=== PATIENT | male | born 1970 | race Caucasian/White ===

== ENCOUNTER 2016-11-17 17:15 | Inpatient (IN) | payer MEDICAID ==
[2016-11-17 17:15] VITALS: BMI 37.3
--- NOTE | 2016-11-17 18:10 | C.PDOC ---
History Of Present Illness <Antony Serna - Last Filed: 11/17/16 18:07> <Karey Arroyo - Last Filed: 11/17/16 20:13> 46 y/o M p/w suicidal ideation. States hearing voices telling him to kill himself. Thinking about jumping out window. Reports has attempted suicide in the past. Denies homicidal ideation or visual hallucinations. Denies any fever, chest pain, vomiting, or other somatic complaint. (Antony Serna) <Antony Serna - Last Filed: 11/17/16 18:07> <Sonja Arroyokayla - Last Filed: 11/17/16 20:13> Time Seen by Provider: 11/17/16 18:05 Chief Complaint (Nursing): Psychiatric Evaluation Past Medical History - Medical History PMH: Anxiety, Arthritis, Depression, HTN, Hypercholesterolemia Denies: Diabetes, Hepatitis, HIV, Chronic Kidney Disease, Seizures, Sexually Transmitted Disease Surgical History: Appendectomy Family History: States: Unknown Family Hx - Social History Hx Tobacco Use: Yes (light smoker) Hx Alcohol Use: No Hx Substance Use: No - Immunization History Hx Tetanus Toxoid Vaccination: No Hx Influenza Vaccination: No Hx Pneumococcal Vaccination: No <Antony Serna - Last Filed: 11/17/16 18:07> Review Of Systems Except As Marked, All Systems Reviewed And Found Negative. Constitutional: Negative for: Fever Cardiovascular: Negative for: Chest Pain <Antony Serna - Last Filed: 11/17/16 18:07> Physical Exam <Antony Serna - Last Filed: 11/17/16 18:07> <Karey Arroyo - Last Filed: 11/17/16 20:13> - Physical Exam Additional Physical Exam Comments: Constitutional: No acute distress. Head: Normocephalic. Atraumatic. Eyes: PERRL. ENT: Moist mucous membranes. Neck: Supple. Cardiovascular: Regular rate. Radial pulse 2+ bilaterally. Chest: No tenderness. Respiratory: Clear to auscultation bilaterally. GI: Soft. Nontender. Nondistended. Back: No CVA tenderness. Musculoskeletal: No tenderness or swelling of extremities. Skin: No rash. Neurologic: Alert, no focal deficit (Antony Serna) ED Course And Treatment - Laboratory Results Result Diagrams: 11/17/16 19:14 11/17/16 19:14 <JodyshellSonjakayla - Last Filed: 11/17/16 20:13> Medical Decision Making <Antony Serna - Last Filed: 11/17/16 18:07> <CruzSonjakayla - Last Filed: 11/17/16 20:13> Medical Decision Making: Will medically clear for psychiatric evaluation. Will sign out to ER night team at change of shift. (Antony Serna) Disposition <Antony Serna - Last Filed: 11/17/16 18:07> Discussed With Dr.: Rosalba Cortez (\) Comment: accepted the pt on her service and took over the care at 8:12 PM Doctor Will See Patient In The: Hospital Counseled Patient/Family Regarding: Studies Performed, Diagnosis - Disposition Disposition Time: 19:00 - POA Present On Arrival: None <CruzKarey - Last Filed: 11/17/16 20:13> - Disposition Disposition: HOSPITALIZED Condition: FAIR - Clinical Impression Clinical Impression: Single major depressive episode, severe, with psychosis Decision To Admit <Antony Serna - Last Filed: 11/17/16 18:07> - Pt Status Changed To: Hospital Disposition Of: Inpatient - Admit Certification Admit to Inpatient:: After my assessment, the patient will require hospitalization for at least two midnights. This is because of the severity of symptoms shown, intensity of services needed, and/or the medical risk in this patient being treated as an outpatient. - InPatient: Physician Admission Certification: I certify that this patient requires 2 or more midnights of care for the following reason:: After my assessment, the patient will require hospitalization for at least two midnights. This is because of the severity of symptoms shown, intensity of services needed, and/or the medical risk in this patient being treated as an outpatient. - . Bed Request Type: Psychiatry Admitting Physician: Rosalba Cortez <Karey Arroyo - Last Filed: 11/17/16 20:13> - . Patient Diagnosis: Single major depressive episode, severe, with psychosis
[2016-11-17 19:24] LABS: URINE BILIRUBIN NEGATIVE (NEGATIVE); URINE BLOOD NEGATIVE (NEGATIVE); URINE COLOR Straw (YELLOW); URINE GLUCOSE (UA) NORMAL (Normal); URINE KETONE NEGATIVE (NEGATIVE); URINE LEUKOCYTE ESTERASE NEG Leu/uL (Negative); URINE PROTEIN NEGATIVE (NEGATIVE); URINE UROBILINOGEN NORMAL mg/dL (0.2-1.0); WBC URINE < 1 /hpf (0-5)
[2016-11-17 19:25] LABS: CHLORIDE 100 mmol/L (98-107); SODIUM 137 mmol/L (132-148)
[2016-11-17 19:26] LABS: POTASSIUM 3.3 mmol/L (3.6-5.2)
[2016-11-17 19:28] LABS: ALB/GLOB RATIO 1.3 (1.0-2.1); ALKALINE PHOSPHATASE 43 U/L (38-126); ALT/SGPT 25 U/L (21-72); AST/SGOT 27 U/L (17-59); BILIRUBIN,TOTAL 0.5 mg/dL (0.2-1.3); BLOOD UREA NITROGEN 15 mg/dL (9-20); CARBON DIOXIDE 27 mmol/L (22-30); GFR AFRICAN-AMERICAN > 60; GLUCOSE,RANDOM 102 mg/dL (75-110); TOTAL PROTEIN 7.6 g/dL (6.3-8.3)
[2016-11-17 19:29] LABS: ALCOHOL SERUM < 10 mg/dl (0-10); CALCIUM 9.2 mg/dl (8.6-10.4)
[2016-11-17 19:43] LABS: BASO # 0.1 K/uL (0.0-0.2); BASO % 1.2 % (0.0-2.0); EOS # 0.2 K/uL (0.0-0.7); EOS % 2.3 % (0.0-4.0); LYMPH % 30.2 % (20.0-40.0); MEAN CELL VOLUME 84.7 fL (80.0-94.0); MEAN PLATELET VOLUME 9.6 fL (7.2-11.7); MONO # 0.7 K/uL (0.0-0.8); MONO % 11.1 % (0.0-10.0); NRBC % 0.1 % (0.0-2.0); RED CELL DISTRIBUTION WIDTH 14.1 % (11.5-14.5); WHITE BLOOD COUNT 6.7 K/uL (4.8-10.8)
[2016-11-17] MEDS ORDERED: Potassium Chloride 20 mEq ER Tab PO STA (20:29)
--- NOTE | 2016-11-18 14:20 | PCM.PSYCH ---
Initial Psychiatric Evaluation - Initial Psychiatric Evaluation Type of Admission: Voluntary Legal Status: Capacity Chief Complaint (in patient's own words): "I feel depressed" History of Present Illness and Precipitating Events: The patient is seen, chart reviewed and case discussed. He is known to the contract writer from 2 previous admissions. This is a 46-year-old male, Citizen Of [place], has 5 children, lives with a friend as he broke up with his girlfriend, unemployed but is appealing an SSI denial. The patient says that he lost his apartment in June because of unpaid rents and then later on broke up with his girlfriend who left with their 3-month-old baby. He got increasingly depressed over the months and recently thought about jumping off a window. He goes to [facility] outpatient program and claims to be compliant with medications. He denies all alcohol and drug use and he is not a smoker. He reports anhedonia, low self-esteem, some hopelessness, sleep/appetite/energy problems. He contracts for safety and agrees to follow his safety plan. He also responded well to reassurance and support. Past psych history: 2 admissions at [facility] with similar presentation and panic attacks. He had 2 suicide attempts in the past once he cut himself but the scars are superficial and the other one was when he tried to hang himself (vague history again) Family psych history: Mother had anxiety and depression. Medical history: Left eye blind, gout, rheumatoid arthritis, high cholesterol, hypertension Current Medications: Active Medications Generic Name Dose Route Start Last Admin Trade Name Freq PRN Reason Stop Dose Admin Allopurinol 300 mg 11/18/16 10:00 11/18/16 10:02 Zyloprim PO 300 mg DAILY BHAVIN Administration Aripiprazole 15 mg 11/18/16 10:00 11/18/16 10:01 Abilify PO 15 mg DAILY BHAVIN Administration Hydrochlorothiazide 25 mg 11/18/16 10:00 11/18/16 10:02 Hydrodiuril PO 25 mg DAILY BHAVIN Administration Lorazepam 2 mg 11/17/16 22:16 11/17/16 22:25 Ativan PO 2 mg DAILY PRN Administration Agitation Losartan Potassium 100 mg 11/18/16 10:00 11/18/16 10:01 Cozaar PO 100 mg DAILY BHAVIN Administration Mirtazapine 45 mg 11/17/16 22:00 11/17/16 22:25 Remeron PO 45 mg HS BHAVIN Administration Trazodone HCl 50 mg 11/17/16 21:59 11/17/16 22:29 Desyrel PO 50 mg HS PRN Administration Insomnia Past Psychiatric History - Past Psychiatric History Previous Treatment History: Inpatient Pertinent Medical Hx (Current Medical&Sleep Prob, Allergies): Allergies Allergy/AdvReac Type Severity Reaction Status Date / Time Iodine and Iodide Containing Allergy Verified 12/15/15 00:57 Produc ARIPiprazole [Abilify] 5 mg PO HS #30 tab 12/20/15 Mirtazapine [Remeron] 30 mg PO HS #30 tab 12/20/15 Allopurinol 11/17/16 Fenofibrate 11/17/16 Valsartan 11/17/16 Review of Systems - Psychiatric Psychiatric: Abnormal Sleep Pattern, Anhedonia, Anxiety, Behavioral Changes, Change in Appetite, Depression, Difficulty Concentrating, Irritability. absent : Hallucinations, Homicidal Ideation, Paranoia, Suicidal Ideation Mental Status Examination - Personal Presentation Personal Presentation: Looks stated age - Affect Affect: Constricted - Motor Activity Motor Activity: Calm - Reliability in Providing Information Reliability in Providing Information: Good - Speech Speech: Organized - Mood Mood: Depressed, Anxious - Formal Thought Process Formal Thought Process: No Impairment - Cognitive Functions Orientation: Person, Place, Situation, Time Sensorium: Alert Attention/Concentration: Easily distracted Abstract Thinking: [place] Estimate of Intelligence: Average Judgement: Intact, as evidence by: Insight regarding need for hospitalization Memory: Recent intact, as evidence by: Ability to recall events of the day, Remote intact, as evidenced by: Abilit to recall sig. life events - Risk Risk: Diminished functioning - Strength & Assets Inventory Strength & Assets Inventory: Cooperative - Limitations Limitations: Living alone, Other DSM 5 DX - DSM 5 DSM 5 Diagnosis: Major depressive d/o -recurrent, severe w/o psychosis Anxiety d/o - unspecified r/o PTSD - Recommended/Plan of Treatment Treatment Recommendations and Plan of Treatment: Depression and anxiety: -Lexapro -Increase Abilify to 20 -Decrease Remeron to 30 -Attend groups and activities -Supportive therapy and CBT -Psychoeducation 32 minutes Projected ELOS: 6 days Prognosis: good with treatment Discharge Plan and Discharge Criteria: No severe depressive sxs Refer to [facility] - Smoking Cessation Smoking Cessation Initiated: No Reason for not providing: Not smoking
[2016-11-18 14:26] LABS: CHLORIDE 104 mmol/L (98-107); POTASSIUM 3.6 mmol/L (3.6-5.2); SODIUM 139 mmol/L (132-148)
[2016-11-18 14:29] LABS: BLOOD UREA NITROGEN 14 mg/dL (9-20); CALCIUM 9.2 mg/dl (8.6-10.4); CARBON DIOXIDE 29 mmol/L (22-30); GFR AFRICAN-AMERICAN > 60; GLUCOSE,RANDOM 122 mg/dL (75-110)
--- NOTE | 2016-11-19 08:36 | PCM.PYCHPN ---
Psychiatric Progress Note - Psychiatric Progress Note Patient seen today, length of contact: 16 min Patient Chief Complaint: "I cant take lexapro" Problems Identified/Issues Discussed: The pt is seen alone and with team, chart reviewed, case discussed with staff. Support given, CBT used. No new symptoms reported, improving slowly and needs more time No SEs from medications but he chose to try Prozac instaed as he had SEs with lexapro in the apst risks discussed. After care discussed. He is not interested in work rehabs Medication Change: Yes (prozac) Medical Record Reviewed: Yes Mental Status Examination - Cognitive Function Orientation: Person, Place, Situation, Time Memory: Intact Attention: WNL Concentration: Poor Association: WNL Fund of Knowledge: WNL - Mood Mood: Depressed, Anxious - Affect Affect: Constricted - Speech Speech: Appropriate - Formal Thought Process Formal Thought Process: No Impairment - Suicidal Ideation Suicidal Ideation: No - Homicidal Ideation Homicidal Ideation: No Goal/Treatment Plan - Goal/Treatment Plan Need for Continued Stay: Discharge may exacerbated symptoms, Severe functional impairment Progress Toward Problem(s) and Goals/Treatment Plan: Depression and anxiety: -Lexapro switched to Prozac -Increase Abilify to 20 -Decrease Remeron to 30 -Attend groups and activities -Supportive therapy and CBT -Psychoeducation
--- NOTE | 2016-11-20 14:15 | PCM.PYCHPN ---
Psychiatric Progress Note - Psychiatric Progress Note Patient seen today, length of contact: 16 min Patient Chief Complaint: "Depressed" Problems Identified/Issues Discussed: The pt is seen, chart reviewed, case discussed with staff. The pt is compliant with medications and reports no side-effects. Symptoms are improving but needs more time to stabilize. Still depressed and cannot sleep: "I'm very anxious" After care discussed, he does not wantto change his clinic but yet the earlies they can see him is in November. Support and psychoeducation given. Medication Change: Yes (decrease remeron, add buspar and gabapentin) Medical Record Reviewed: Yes Mental Status Examination - Cognitive Function Orientation: Person, Place, Situation, Time Memory: Intact Attention: WNL Concentration: Poor Association: WNL Fund of Knowledge: WNL - Mood Mood: Depressed, Anxious - Affect Affect: Constricted - Speech Speech: Appropriate - Formal Thought Process Formal Thought Process: No Impairment - Suicidal Ideation Suicidal Ideation: No - Homicidal Ideation Homicidal Ideation: No Goal/Treatment Plan - Goal/Treatment Plan Need for Continued Stay: Discharge may exacerbated symptoms, Severe functional impairment Progress Toward Problem(s) and Goals/Treatment Plan: Depression and anxiety: -Lexapro switched to Prozac -Increased Abilify to 20 -Decreased Remeron to 15 - Add gabapentin and buspar for anxiety - Risks of meds discussed and he is OK -Attend groups and activities -Supportive therapy and CBT -Psychoeducation Estimated Date of D/C: 11/24/16
[2016-11-21 09:53] VITALS: O2SAT 97
--- NOTE | 2016-11-21 17:16 | PCM.PYCHPN ---
Psychiatric Progress Note - Psychiatric Progress Note Patient seen today, length of contact: 28 min Patient Chief Complaint: "I am very anxious" Problems Identified/Issues Discussed: The pt is seen, chart reviewed, case discussed with staff. The pt is compliant with medications and he had a side-effect this afternoon when he was all red, but not itchy, not sweaty, yet uncomfortable/anxious and tachy. His BP also increased. He is given one dose of Valium 5 mg, and 2 doses of Clonidine 0.1, and one dose of atarax. He is advised to hydrate a lot and rest. It could be a mild allergic reaction or mild serotonergic syndrome. Symptoms are improving but needs more time to stabilize especially now that meds are changed. Still depressed and cannot sleep: "I'm very anxious" Klonopin added After care discussed, he does not want to change his clinic still Support and psychoeducation given. He is advised to not take SSRIs again. Medication Change: Yes (increase remeron, d/c prozac, trazodone and buspar. Add seroquel) Medical Record Reviewed: Yes Mental Status Examination - Cognitive Function Orientation: Person, Place, Situation, Time Memory: Intact Attention: WNL Concentration: Poor Association: WNL Fund of Knowledge: WNL - Mood Mood: Depressed, Anxious - Affect Affect: Constricted - Speech Speech: Appropriate - Formal Thought Process Formal Thought Process: No Impairment - Suicidal Ideation Suicidal Ideation: No - Homicidal Ideation Homicidal Ideation: No Goal/Treatment Plan - Goal/Treatment Plan Need for Continued Stay: Discharge may exacerbated symptoms, Severe functional impairment Progress Toward Problem(s) and Goals/Treatment Plan: Depression and anxiety: -Prozac stopped, remeron increased. -Trazodone dc'ed, seroquel added for insomnia - Decrease Abilify to 10 mg too - Added Klonopin for anxiety, short term - gabapentin for anxiety, senior care - Risks of meds discussed and he is OK now, incl. serot. syndrome -Attend groups and activities -Supportive therapy and CBT -Psychoeducation - After care is ready Estimated Date of D/C: 11/26/16
[2016-11-23] MEDS: VALSARTAN HCTZ PO SCH (09:04)
--- NOTE | 2016-11-24 01:03 | PCM.PYCHPN ---
Psychiatric Progress Note - Psychiatric Progress Note Patient seen today, length of contact: 15 MIN Patient Chief Complaint: I STILL VERY ANXIOUS Problems Identified/Issues Discussed: SYMPTOM MANAGEMENT Medical Problems: NOTHING ACUTE Diagnostic Results: REVIEWED DSM 5 Symptoms Update: ANXIETY Medication Change: No Medical Record Reviewed: Yes Mental Status Examination - Cognitive Function Orientation: Person, Place, Situation, Time Memory: Intact Attention: WNL Concentration: Poor Association: WNL Fund of Knowledge: WNL - Mood Mood: Depressed, Anxious - Affect Affect: Constricted - Speech Speech: Appropriate - Formal Thought Process Formal Thought Process: No Impairment - Suicidal Ideation Suicidal Ideation: No - Homicidal Ideation Homicidal Ideation: No Goal/Treatment Plan - Goal/Treatment Plan Need for Continued Stay: Discharge may exacerbated symptoms, Severe functional impairment Progress Toward Problem(s) and Goals/Treatment Plan: MDD EMMIEOFAnton HERNÁNDEZ DORINDA HUMBLE SEROKAREN SUPPORTIVE PSYCHOTHERAPY Estimated Date of D/C: 11/26/16 - Smoking Cessation Smoking Cessation Initiated: No
--- NOTE | 2016-11-24 02:44 | PCM.PYCHPN ---
Psychiatric Progress Note - Psychiatric Progress Note Patient seen today, length of contact: 15 MIN Patient Chief Complaint: I NEED A BLOOD PRESSURE CUFF. MY BP GOES UP AND DOWN Problems Identified/Issues Discussed: ADHERENCE TO TREATMENT AND MEDS Medical Problems: NOTHING ACUTE Diagnostic Results: REVIWED Medication Change: No Medical Record Reviewed: Yes Mental Status Examination - Cognitive Function Orientation: Person, Place, Situation, Time Memory: Intact Attention: WNL Concentration: WNL Association: WNL Fund of Knowledge: WNL - Mood Mood: Depressed, Anxious - Affect Affect: Constricted - Speech Speech: Appropriate - Formal Thought Process Formal Thought Process: No Impairment - Suicidal Ideation Suicidal Ideation: No - Homicidal Ideation Homicidal Ideation: No Goal/Treatment Plan - Goal/Treatment Plan Need for Continued Stay: Discharge may exacerbated symptoms, Severe functional impairment Progress Toward Problem(s) and Goals/Treatment Plan: MDD KATEY HERNÁNDEZ CA CBT SUPPORTIVE PSYCHOTHERAPY DORINDA ZOILAIONCODIIN SERGABBIE SUPPORTIVE PSYCHOTHERAPY Estimated Date of D/C: 11/26/16 - Smoking Cessation Smoking Cessation Initiated: Yes
[2016-11-24] MEDS: VALSARTAN HCTZ PO SCH (09:34)
--- NOTE | 2016-11-24 14:14 | PCM.PYCHPN ---
Psychiatric Progress Note - Psychiatric Progress Note Patient seen today, length of contact: 16 min Patient Chief Complaint: "I am worried a lot about my BP" Problems Identified/Issues Discussed: The pt is seen, chart reviewed, case discussed with staff. Support given, CBT and RI used briefly No new symptoms reported, improving slowly and needs some more time No SEs from medications, risks discussed. After care discussed - will go back to his clinic BP is up a lot. Consult requested He is now on 3-4 BP meds and still running high Medication Change: Yes (add BP meds) Medical Record Reviewed: Yes Mental Status Examination - Cognitive Function Orientation: Person, Place, Situation, Time Memory: Intact Attention: WNL Concentration: WNL Association: WNL Fund of Knowledge: WNL - Mood Mood: Depressed, Anxious - Affect Affect: Constricted - Speech Speech: Appropriate - Formal Thought Process Formal Thought Process: No Impairment - Suicidal Ideation Suicidal Ideation: No - Homicidal Ideation Homicidal Ideation: No Goal/Treatment Plan - Goal/Treatment Plan Need for Continued Stay: Discharge may exacerbated symptoms, Severe functional impairment Progress Toward Problem(s) and Goals/Treatment Plan: Depression and anxiety: -Prozac stopped, remeron increased. -Trazodone dc'ed, seroquel added for insomnia - Decrease Abilify to 10 mg too - Added Klonopin for anxiety, short term - gabapentin for anxiety, care home - Risks of meds discussed and he is OK now, incl. serot. syndrome -Attend groups and activities -Supportive therapy and CBT -Psychoeducation - After care is ready Estimated Date of D/C: 11/25/16
[2016-11-24 18:31] LABS: THYROID STIMULATING HORMONE 1.65 mIU/L (0.46-4.68)
[2016-11-24 19:27] LABS: FREE T4 1.26 ng/dL (0.78-2.19)
--- NOTE | 2016-11-24 19:41 | CP.PCM.CON ---
<Yesenia WellsCarlota - Last Filed: 11/24/16 19:28> History of Present Illness - History of Present Illness History of Present Illness: PGY1 Medicine Consult- Dr. Barrera's Service HPI: Patient is a 46 y/o male with PMH of hypertension, hyperlipidemia, anxiety , and depression admitted to hospital for depression and anxiety. He is currently homeless for 5 months living with his friend. He has no job and is applying for disability. Patient has two previous psychiatric admissions at [facility]. Today patient feels like his ears are clogged, hands are cold, and slight blurry vision when he is feeling anxious. Patient denies headache, dizziness, shortness of breath, lightheadedness, chest pain, abdominal pain, nausea, vomiting, diarrhea, constipation, dysuria, leg pain, or leg swelling. PMD: Dr. Dickens PMHx: Left eye blind, gout, rheumatoid arthritis, high cholesterol, hypertension PSurg: appendix removed ~2014, cyst on right buttock removed ~2014 Social hx: stopped smoking 3 weeks ago, before smoked 5 cigarettes per day for 30 years EtOH: about 2x per month 7-8 beers Drugs: none Medications: please see chart for psych medications Norvasc 10 mg PO daily Allopurinol 300 mg PO daily HCTZ 12.5 mg PO daily Family Hx: mom of a stroke father had hypertension and DM Allergies: Iodine- has shortness of breath and palpitations Review of Systems - Constitutional Constitutional: absent: Fever, Headache - EENT Eyes: Blurred Vision. absent: Diplopia, Irritation, Pain Ears: absent: Dizziness Nose/Mouth/Throat: absent: Nasal Congestion, Nasal Discharge, Sinus Pain - Cardiovascular Cardiovascular: absent: Chest Pain, Diaphoresis, Dyspnea, Lightheadedness - Respiratory Respiratory: absent: Cough, Dyspnea, Wheezing, Stridor - Gastrointestinal Gastrointestinal: absent: Abdominal Pain, Change in Bowel Habits, Constipation, Diarrhea - Genitourinary Genitourinary: absent: Change in Urinary Stream, Difficulty Urinating, Dysuria - Musculoskeletal Musculoskeletal: absent: Abnormal Gait, Muscle Weakness, Stiffness - Integumentary Integumentary: absent: Change in Pigmentation, Rash, Skin Pain - Neurological Neurological: absent: Abnormal Speech, Dizziness, Headaches, Syncope - Endocrine Additional Comments: cold hands to the touch - Hematologic/Lymphatic Hematologic: absent: Easy Bleeding, Easy Bruising Past Patient History - Infectious Disease Hx of Infectious Diseases: None - Past Social History Smoking Status: Former Smoker - CARDIAC Hx Hypercholesterolemia: Yes Hx Hypertension: Yes - PULMONARY Hx Tuberculosis: No - NEUROLOGICAL Hx Seizures: No - HEENT Hx HEENT Problems: No - RENAL Hx Chronic Kidney Disease: No - ENDOCRINE/METABOLIC Hx Endocrine Disorders: No - HEMATOLOGICAL/ONCOLOGICAL Hx Human Immunodeficiency Virus (HIV): No - INTEGUMENTARY Hx Dermatological Problems: No - MUSCULOSKELETAL/RHEUMATOLOGICAL Hx Arthritis: Yes - GASTROINTESTINAL Hx Gastrointestinal Disorders: No - GENITOURINARY/GYNECOLOGICAL Hx Sexually Transmitted Disorders: No - PSYCHIATRIC Hx Substance Use: Yes - SURGICAL HISTORY Hx Appendectomy: Yes - ANESTHESIA Hx Anesthesia: Yes Hx Anesthesia Reactions: No Hx Malignant Hyperthermia: No Meds Allergies/Adverse Reactions: Allergies Allergy/AdvReac Type Severity Reaction Status Date / Time Iodine and Iodide Containing Allergy RASH Verified 11/21/16 13:31 Produc escitalopram [From Lexapro] AdvReac DIZZINESS Verified 11/22/16 16:24 SSRI AdvReac Intermediate REDNESS Uncoded 11/21/16 13:31 - Medications Medications: Current Medications Allopurinol (Zyloprim) 300 mg PO DAILY [facility] Last Admin: 11/24/16 09:30 Dose: 300 mg Amlodipine Besylate (Norvasc) 10 mg PO DAILY [facility] Last Admin: 11/24/16 09:30 Dose: 10 mg Aripiprazole (Abilify) 10 mg PO DAILY [facility] Last Admin: 11/24/16 09:30 Dose: 10 mg Clonazepam (Klonopin) 0.5 mg PO BID [facility] Last Admin: 11/24/16 17:09 Dose: 0.5 mg Clonidine HCl (Catapres) 0.1 mg PO Q6H PRN PRN Reason: BP>150/100 or P>100 Last Admin: 11/24/16 17:09 Dose: 0.1 mg Diphenhydramine HCl (Benadryl) 50 mg PO Q6H PRN PRN Reason: allergic reaction Fenofibrate (Tricor) 145 mg PO HS [facility] Last Admin: 11/23/16 21:37 Dose: 145 mg Gabapentin (Neurontin) 300 mg PO TID [facility] Last Admin: 11/24/16 17:10 Dose: 300 mg Home Med (Patient's Own Medication) 1 tab PO DAILY [facility] Last Admin: 06/26/17 09:34 Dose: 1 tab Hydrochlorothiazide (Microzide) 12.5 mg PO DAILY [facility] Hydroxyzine HCl (Atarax) 50 mg PO Q6H PRN PRN Reason: Anxiety Last Admin: 11/24/16 17:09 Dose: 50 mg Mirtazapine (Remeron) 30 mg PO HS [facility] Last Admin: 11/23/16 21:37 Dose: 30 mg Quetiapine Fumarate (Seroquel) 50 mg PO [facility] Last Admin: 11/23/16 21:37 Dose: 50 mg Physical Exam - Constitutional Appears: Well, Non-toxic - Head Exam Head Exam: ATRAUMATIC, NORMAL INSPECTION, NORMOCEPHALIC - Eye Exam Eye Exam: EOMI, Normal appearance, PERRL - ENT Exam ENT Exam: Mucous Membranes Moist, Normal Exam - Neck Exam Neck exam: Positive for: Normal Inspection - Respiratory Exam Respiratory Exam: Clear to Auscultation Bilateral, NORMAL BREATHING PATTERN. absent: Rales, Rhonchi, Wheezes, Stridor - Cardiovascular Exam Cardiovascular Exam: REGULAR RHYTHM, RRR. absent: Gallop, Rubs, Systolic Murmur - GI/Abdominal Exam GI & Abdominal Exam: Normal Bowel Sounds, Soft. absent: Tenderness - Extremities Exam Extremities exam: Positive for: normal inspection. Negative for: joint swelling , pedal edema, tenderness - Neurological Exam Neurological exam: Alert, Oriented x3 - Psychiatric Exam Psychiatric exam: Depressed - Skin Skin Exam: Normal Color, Warm Results - Vital Signs Recent Vital Signs: Last Vital Signs Temp 98.6 F 11/24/16 08:20 Pulse 118 H 11/24/16 16:04 Resp 110 H 11/24/16 18:00 BP 112/78 11/24/16 18:00 Pulse Ox 97 11/23/16 07:01 - Labs Result Diagrams: 11/17/16 19:14 11/18/16 14:04 Labs: Laboratory Results - last 24 hr 11/24/16 17:44 TSH 3rd Generation 1.65 <Gilberto Barrera H - Last Filed: 11/25/16 07:28> Meds - Medications Medications: Current Medications Allopurinol (Zyloprim) 300 mg PO DAILY [facility] Last Admin: 11/24/16 09:30 Dose: 300 mg Amlodipine Besylate (Norvasc) 10 mg PO DAILY [facility] Last Admin: 11/24/16 09:30 Dose: 10 mg Aripiprazole (Abilify) 10 mg PO DAILY [facility] Last Admin: 11/24/16 09:30 Dose: 10 mg Clonazepam (Klonopin) 0.5 mg PO BID [facility] Last Admin: 11/24/16 17:09 Dose: 0.5 mg Clonidine HCl (Catapres) 0.1 mg PO Q6H PRN PRN Reason: BP>150/100 or P>100 Last Admin: 11/24/16 17:09 Dose: 0.1 mg Diphenhydramine HCl (Benadryl) 50 mg PO Q6H PRN PRN Reason: allergic reaction Fenofibrate (Tricor) 145 mg PO HS [facility] Last Admin: 11/24/16 21:37 Dose: 145 mg Gabapentin (Neurontin) 300 mg PO TID [facility] Last Admin: 11/24/16 17:10 Dose: 300 mg Home Med (Patient's Own Medication) 1 tab PO DAILY [facility] Last Admin: 11/24/16 09:34 Dose: 1 tab Hydrochlorothiazide (Microzide) 12.5 mg PO DAILY [facility] Hydroxyzine HCl (Atarax) 50 mg PO Q6H PRN PRN Reason: Anxiety Last Admin: 11/24/16 17:09 Dose: 50 mg Mirtazapine (Remeron) 30 mg PO HS [facility] Last Admin: 11/24/16 21:37 Dose: 30 mg Quetiapine Fumarate (Seroquel) 50 mg PO HS [facility] Last Admin: 11/24/16 21:37 Dose: 50 mg Results - Vital Signs Recent Vital Signs: Last Vital Signs Temp 98.6 F 11/24/16 08:20 Pulse 118 H 11/24/16 16:04 Resp 110 H 11/24/16 18:00 BP 112/78 11/24/16 18:00 Pulse Ox 97 11/23/16 07:01 - Labs Result Diagrams: 11/17/16 19:14 11/18/16 14:04 Labs: Laboratory Results - last 24 hr 11/24/16 17:44 Free T4 1.26 TSH 3rd Generation 1.65 Attending/Attestation - Attestation I have personally seen and examined this patient.: Yes I have fully participated in the care of the patient.: Yes I have reviewed all pertinent clinical information: Yes Notes (Text): 11/25/16 07:27 Medical attending: Patient was seen and examined by me, we saw and examined the patient together with the medical assistant. Patient is ready on one blood pressure medication, we can add on hydrochlorothiazide as well. At this time will continue see how he does on this additional medication. Regarding continue to monitor blood pressure and also review some of his lab work as well Thank you very much, Gilberto Barrera
[2016-11-25 07:41] VITALS: BP 129/87; PULSE 67; RESP 18; TEMP 97.7
[2016-11-25 09:17] LABS: BASO # 0.1 K/uL (0.0-0.2); BASO % 1.1 % (0.0-2.0); EOS # 0.1 K/uL (0.0-0.7); EOS % 2.1 % (0.0-4.0); HEMATOCRIT 49.2 % (35.0-51.0); LYMPH # 2.3 K/uL (1.0-4.3); LYMPH % 33.7 % (20.0-40.0); MEAN CELL VOLUME 86.4 fL (80.0-94.0); MEAN CORPUSCULAR HEMOGLOBIN 28.2 pg (27.0-31.0); MEAN CORPUSCULAR HGB CONC 32.6 g/dL (33.0-37.0); MEAN PLATELET VOLUME 9.5 fL (7.2-11.7); MONO # 0.6 K/uL (0.0-0.8); MONO % 8.6 % (0.0-10.0); NRBC % 0.1 % (0.0-2.0); RED CELL DISTRIBUTION WIDTH 14.7 % (11.5-14.5); WHITE BLOOD COUNT 6.8 K/uL (4.8-10.8)
[2016-11-25 09:24] LABS: CHLORIDE 104 mmol/L (98-107); POTASSIUM 3.4 mmol/L (3.6-5.2); SODIUM 142 mmol/L (132-148)
[2016-11-25 09:26] LABS: GFR AFRICAN-AMERICAN > 60
[2016-11-25 09:27] LABS: ALB/GLOB RATIO 1.2 (1.0-2.1); ALKALINE PHOSPHATASE 55 U/L (38-126); ALT/SGPT 28 U/L (21-72); AST/SGOT 35 U/L (17-59); BILIRUBIN,TOTAL 0.7 mg/dL (0.2-1.3); BLOOD UREA NITROGEN 14 mg/dL (9-20); CARBON DIOXIDE 25 mmol/L (22-30); GLUCOSE,RANDOM 142 mg/dL (75-110); TOTAL PROTEIN 7.8 g/dL (6.3-8.3)
[2016-11-25 09:28] LABS: CALCIUM 9.6 mg/dl (8.6-10.4)
[2016-11-25] MEDS: VALSARTAN HCTZ PO SCH (10:05)
--- NOTE | 2016-11-25 10:58 | PCM.PYCHDC ---
Mental Status Examination - Mental Status Examination Orientation: Person, Place, Situation, Time Memory: Intact Mood: Anxious Affect: Constricted Speech: Appropriate Attention: WNL Concentration: Poor Association: WNL Fund of Knowledge: WNL Formal Thought Process: No Impairment Suicidal Ideation: No Current Homicidal Ideation?: No Discharge Summary - Discharge Note Reason for Hospitalization: Depression and SI Laboratory Data: Abnormal Lab Results 11/24/16 11/25/16 11/25/16 17:44 09:11 09:11 WBC 6.8 RBC 5.69 Hgb 16.1 D Hct 49.2 MCV 86.4 MCH 28.2 MCHC 32.6 L RDW 14.7 H Plt Count 227 MPV 9.5 Neut % (Auto) 54.5 Lymph % (Auto) 33.7 [place] % (Auto) 8.6 Eos % (Auto) 2.1 Baso % (Auto) 1.1 Neut # 3.7 Lymph # 2.3 [place] # 0.6 Eos # 0.1 Baso # 0.1 Sodium 142 Potassium 3.4 L Chloride 104 Carbon Dioxide 25 Anion Gap 16 BUN 14 Creatinine 1.1 Est GFR ( Amer) > 60 Est GFR (Non-Af Amer) > 60 Random Glucose 142 H Calcium 9.6 Total Bilirubin 0.7 AST 35 ALT 28 Alkaline Phosphatase 55 Total Protein 7.8 Albumin 4.2 Globulin 3.6 Albumin/Globulin Ratio 1.2 Free T4 1.26 TSH 3rd Generation 1.65 Consultations:: List each consultation separately and include: 1. Reason for request. 2. Findings. 3. Follow-up Summary of Hospital Course include:: 1. Description of specific treatment plan utilized for patients during their course of treatmen. 2. Summarize the time- course for resolution of acute symptoms and/or regressed behaviors. 3. Describe issues identified and worked on during hospitalization. 4. Describe medication utilized. 5. Describe medical problems identified and treated. 6. Reassessment of suicide risk Summary of Hospital Course: On admission: The patient is seen, chart reviewed and case discussed. He is known to the junior copywriter from 2 previous admissions. This is a 46-year-old male, [place], has 5 children, lives with a friend as he broke up with his girlfriend, unemployed but is appealing an SSI denial. The patient says that he lost his apartment in June because of unpaid rents and then later on broke up with his girlfriend who left with their 3-month-old baby. He got increasingly depressed over the months and recently thought about jumping off a window. He goes to [facility] outpatient program and claims to be compliant with medications. He denies all alcohol and drug use and he is not a smoker. He reports anhedonia, low self-esteem, some hopelessness, sleep/appetite/energy problems. He contracts for safety and agrees to follow his safety plan. He also responded well to reassurance and support. Past psych history: 2 admissions at [facility] with similar presentation and panic attacks. He had 2 suicide attempts in the past once he cut himself but the scars are superficial and the other one was when he tried to hang himself (vague history again) Family psych history: Mother had anxiety and depression. Medical history: Left eye blind, gout, rheumatoid arthritis, high cholesterol, hypertension Hospital course: The pt was admitted and started on treatment with psychotherapy, support, psychoeducation and medications. ND and CBT used. The pt attended groups and activities, as well as milieu therapy. All the risks and benefits of medications are discussed and the patient understood and agreed. After care discussed with the patient. He did not want to change his treatment team. He was slowed, isolated, sometimes withdrawn. He looked depressed. He asked if his lwyer can get a copy of these records b/c he truly believes he cannot work (he quit many times due to pain or panic attacks) Importance of keeping an active structure discussed but he is too fixated on getting disability. he said when he gets it he will move to [place] or [place] where his family lives (though he has a child here) His BP has been an issue here as it was almost malignant HTN and he had to be on 3 meds - Final Diagnosis (DSM 5) Condition upon Discharge: IMPROVED DSM 5: Major depressive d/o -recurrent, severe w/o psychosis Anxiety d/o - unspecified r/o PTSD Disposition: HOME/ ROUTINE Follow-up Treatment Plan: Continue below medications after discharge. Follow after care plan as discussed. He will follow with his own therapist and psychiatrist next week at [facility] clinic Return to ER or call 911 if suicidal, homicidal or symptoms relapse. Stay away from stress, alcohol and drugs. See primary doctor once a year but first see him today or tomorrow due to still high BP BP machine rx'ed Also Norvasc added and a rx given by Dr Barrera, he has rx for diovan Prescriptions/Medication Reconciliation: ARIPiprazole [Abilify] 10 mg PO DAILY #30 tab Gabapentin [Neurontin] 300 mg PO TID #30 cap hydrOXYzine HCl [Atarax] 50 mg PO Q6H PRN #60 tab PRN Reason: Anxiety Mirtazapine [Remeron] 30 mg PO HS #30 tab QUEtiapine [SEROquel] 50 mg PO HS #30 tab - Smoking Cessation Smoking Cessation Medication prescribed: No - Antipsychotic Medications Pt discharged on 2 or more routine antipsychotic medications: No
--- NOTE | 2016-11-25 12:52 | CARD ---
APPROVED REPORT EKG Measurement Heart [id number] HI [id number] <Conclusion> Normal sinus rhythm Normal ECG
== END 2016-11-25 15:00 | disposition home or self-care (01) | DRG 430 ==
LOC: C.ER 17:15 → C.5E 20:13
PROVIDERS: ADMIT Psychiatry & Neurology Psychiatry; ATTEND Psychiatry & Neurology Psychiatry
PROC: GZHZZZZ Group Psychotherapy (ICD-10-PCS; principal; 2016-11-17)
PROC: GZ58ZZZ Individual Psychotherapy, Cognitive-Behavioral (ICD-10-PCS; 2016-11-17)
PROC: GZ56ZZZ Individual Psychotherapy, Supportive (ICD-10-PCS; 2016-11-17)
DX: F33.2 Major depressive disorder, recurrent severe without psychotic features (principal); R45.851 Suicidal ideations; I10 Essential (primary) hypertension; F41.9 Anxiety disorder, unspecified; E78.00 Pure hypercholesterolemia, unspecified; M06.9 Rheumatoid arthritis, unspecified; M10.9 Gout, unspecified; H54.42 Blindness, left eye, normal vision right eye; G47.00 Insomnia, unspecified; F43.10 Post-traumatic stress disorder, unspecified; E78.5 Hyperlipidemia, unspecified; Z59.0 Homelessness; Z87.891 Personal history of nicotine dependence; R00.0 Tachycardia, unspecified; T50.905A Adverse effect of unspecified drugs, medicaments and biological substances, initial encounter